=== PATIENT | female | born 1985 | race Caucasian/White ===

== ENCOUNTER 2020-09-16 15:28 | Outpatient (CLI) | payer OTHER, SELFPAY ==
--- NOTE | ~2020-09-16 | US_ITS ---
EXAMINATION: US abdomen limited EXAM DATE: 09/16/2020 15:58 INDICATION: Right upper quadrant pain. TECHNIQUE: Multiple grayscale and Doppler images of the abdomen right upper quadrant were obtained (b y a technologist who performed the scan) and subsequently reviewed. There is no prior study for neo jameson. FINDINGS: The pancreatic head and body are normal in appearance. The pancreatic tail is not visualized. The l iver has normal echogenicity and contour. There are no focal liver lesions identified. There is no evidence of intrahepatic biliary duct dilation. Portal venous flow was seen in the hepatopedal, nor mal direction and has normal Doppler waveform. No right-sided hydronephrosis. Common bile duct measures 2 mm, which is normal. The gallbladder wall is normal in thickness, with ex pected amount of distention. No sonographic evidence of pericholecystic fluid. There is no cholelit hiases. Technologist performing exam reports patient did not demonstrate sonographic Tapia's sign. Please note that this sign is less reliable in patients who have received pain medication. IMPRESSION: 1. Unremarkable abdominal ultrasound exam. Reviewed, dictated and finalized at location A. MENTATION COORDINATOR
== END 2020-09-16 15:29 | disposition home or self-care (01) ==
PROVIDERS: PCP Family Medicine; Visit Provider Family Medicine
DX: R10.11 Right upper quadrant pain (principal)
CPT/HCPCS: 76705

== ENCOUNTER 2020-09-17 08:47 | Emergency (ER) | payer OTHER, SELFPAY ==
--- NOTE | ~2020-09-17 | CT_ITS ---
EXAMINATION: CT abdomen pelvis w con INDICATION: Abdominal pain TECHNIQUE: Computed tomographic images of the abdomen and pelvis were obtained after the administrati on of 100 cc of Omnipaque 350 intravenous contrast. The dose-length product (DLP) was 248.66 mGy-cm. Automated exposure control and iterative reconstruction technique were employed. COMPARISON: None available FINDINGS: Minimal dependent atelectasis is present in the lung bases. The heart size is normal. There is a 13 mm cyst in the left hepatic lobe. The liver is otherwise unremarkable. The spleen, pancreas, gallbladder, and adrenal glands are normal. The kidneys are unremarkable. No pathologically enlarged abdominal or pelvic lymph nodes are identified. There is no free intraperitoneal gas or evidence of bowel obstruction. The appendix is normal. An IUD is present uterus. IMPRESSION: 1. No CT correlate for the patient's symptoms. Reviewed, dictated and finalized at location A. OR FUND ACCOUNTANT
[2020-09-17 08:51] VITALS: BP 119/73; PULSE 78; RESP 18; TEMP 36.3; O2SAT 100
[2020-09-17 09:15] LABS: Basophils Absolute Auto 0.1 K/mm3 (0.0-0.1); Eosinophils Absolute Auto 0.8 K/mm3 (0-0.3); Eosinophils Percent Auto 13.6 % (0-4.4); Hematocrit 42.4 % (37.0-47.0); Hemoglobin 14.6 g/dL (12.0-15.0); Lymphocytes Absolute Auto 1.51 K/mm3 (0.9-3.2); Lymphocytes Percent Auto 24.4 % (18.3-44.2); Mean Corpuscular HGB Conc 34.4 g/dl (32-36); Mean Corpuscular Hemoglobin 31.6 pg (26-34); Mean Corpuscular Volume 91.8 fl (80-100); Mean Platelet Volume 9.7 fl (7.4-10.4); Monocytes Absolute Auto 0.4 K/mm3 (0.1-0.6); Monocytes Percent Auto 6.1 % (2.6-8.5); Neutrophils Absolute Auto 3.4 K/mm3 (1.3-6.7); Neutrophils Percent Auto 54.9 % (45.5-73.1); Platelet Count Result 224 k/mm3 (150-375); Red Blood Count 4.62 M/mm3 (4.2-5.4); Red Cell Distribution Width 11.7 % (11.5-14.5); White Blood Count 6.2 K/mm3 (4.5-10.0)
[2020-09-17 09:19] LABS: Add Urine Microscopic? YES; Appearance Urine Clear (Clear); Bilirubin Urine Negative (Negative); Blood Urine 1+ (Negative); Color Urine Yellow (Yellow); Glucose Urine UA Negative (Negative); Ketones Urine Trace mg/dL (Negative); Leukocyte Esterase Ur Negative LEU/UL (Negative); Mucus Urine Rare /lpf; Nitrate Urine Negative (Negative); Protein Urine Negative (Negative); RBC Urine 0-2 /hpf (0-2); Specific Grav Ur 1.018 (1.001-1.035); Squamous Epithelial Cell Urine Many /hpf (Few); Urobilinogen Urine Negative mg/dL (<2.0); WBC Urine 0-3 /hpf
[2020-09-17 09:26] LABS: Alanine Aminotransferase 16 U/L (4-35); Albumin Level 4.1 g/dL (3.5-5.1); Alkaline Phosphatase 101 U/L (38-126); Anion Gap 7 mmol/L (8-16); Aspartate Amino Transferase 25 U/L (14-36); Bilirubin,Total 0.3 mg/dL (0.2-1.3); Blood Urea Nitrogen 12 mg/dL (7-17); Calcium 9.1 mg/dL (8.4-10.2); Carbon Dioxide 22 mmol/L (22-30); Chloride 109 mmol/L (98-107); Estimated CRCL calculation 89 ml/min; Estimated Glomerular Filt Rate > 60; Glucose 95 mg/dL (65-105); Lipase 102 U/L (23-300); Sodium 138 mmol/L (137-145)
--- NOTE | 2020-09-17 09:45 | ED.ABDPAIN ---
HPI - Abdominal Pain General Chief Complaint: Abdominal Pain Stated Complaint: gallbladder pain Time Seen by Provider: 09/17/20 08:50 Source: patient Mode of arrival: ambulatory Limitations: no limitations History of Present Illness HPI narrative: A 35-year-old female comes into the emergency department with complaints of abdominal pain going on for the last couple of days. She also notes a lot of diarrhea associated with this. Patient states that the pain feels like a large abdominal cramp. She notes this does feel different than menstrual cramps. Patient states that she has a Mirena, her periods have been very erratic and she does sometimes spot. She noted some spotting last week. Patient does endorse nausea without vomiting. She denies any fevers or chills. Related Data Allergies Allergy/AdvReac Type Severity Reaction Status Date / Time Penicillins Allergy Mild HIVES Verified 09/17/20 08:58 poison martin extract Allergy Mild RASH Verified 09/17/20 08:58 divalproex sodium Allergy Unknown Edema Verified 09/17/20 08:58 penicillin V Allergy Unknown Skin Verified 09/17/20 08:58 Reaction prochlorperazine Allergy Unknown twitching, Verified 09/17/20 08:58 restlessness Review of Systems Review of Systems: Narrative: CONSTITUTIONAL: Denies fever, chills, or sweats. EYES: Denies visual changes, redness, or discharge. ENT: Denies rhinorrhea, congestion, sore throat, or otalgia. CARDIOVASCULAR: Denies chest pain, palpitations, or edema. RESPIRATORY: Denies cough or dyspnea. GASTROINTESTINAL: Endorses diarrhea and abdominal cramping. GENITOURINARY: Denies dysuria or hematuria. SKIN: Denies rash or itching. MUSCULOSKELETAL: Denies back pain, joint pain, or myalgia. NEUROLOGIC: Denies headache, numbness, dizziness, or weakness. PSYCHIATRIC: Denies anxiety or depression. [facility] Past Medical History Medical History delivery delivered Chronic GERD Major depression Surgical History Surgical History Hx of LASIK Family History Family History Other Depression Social History Social History Smoking status: Current every day smoker Second hand tobacco smoke exposure: Yes Alcohol intake: current Gender identity (if verbalized by the patient): Female Exam Narrative: Exam Narrative: GENERAL: Well-appearing, well-nourished, and in no acute distress. HEAD: Normocephalic, atraumatic. EYES: PERRLA and EOMI. ENT: Nares clear, no rhinorrhea or epistaxis. Mucous membranes moist. NECK: Supple. No adenopathy or masses. No carotid bruits or JVD CHEST: Clear to auscultation. No respiratory distress. No wheezes rales or rhonchi HEART: Regular rate and rhythm. No murmur heard. Normal peripheral pulses. ABDOMEN: Soft, nondistended, normal active bowel sounds. Tenderness to palpation of the right lower quadrant. EXTREMITIES: Normal range of motion. No edema. SKIN: Warm, dry, no rash. NEURO: No focal deficits. Alert and oriented x3. PSYCH: Normal mood and affect. Course Reevaluation(s) Reevaluation #1: Patient lying comfortably in the bed at this time. Reevaluated her and explained the benign work-up. Patient reassured and will be discharged to follow-up with her primary care physician. Time: 11:11 Vital Signs Vital signs: Vital Signs Temperature 36.3 C L 09/17/20 08:51 Pulse Rate 78 09/17/20 08:51 Respiratory Rate 18 09/17/20 08:51 Blood Pressure 119/73 09/17/20 08:51 Pulse Oximetry 100 09/17/20 08:51 Temperature 36.3 C L 09/17/20 08:51 Pulse Rate 78 09/17/20 08:51 Respiratory Rate 18 09/17/20 08:51 Blood Pressure 119/73 09/17/20 08:51 Pulse Oximetry 100 09/17/20 08:51 MDM - Abdominal Pain MDM Narrative Medical decision making narrative: In brief this 35-year
[2020-09-17] MEDS: KETOROLAC 15 MG/ML VIAL (*BKC) IV PUSH (10:11)
[2020-09-17] MEDS: DICYCLOMINE HCL INJ 20 MG/2 ML VIAL IM (10:11)
== END 2020-09-17 12:16 | disposition home or self-care (01) ==
PROVIDERS: Emergency Provider Emergency Medicine; PCP Family Medicine
DX: R19.7 Diarrhea, unspecified (principal); R10.9 Unspecified abdominal pain; K21.9 Gastro-esophageal reflux disease without esophagitis; F32.9 Major depressive disorder, single episode, unspecified
CPT/HCPCS: 36415; 74177; 80053; 81001; 81025; 83690; 85025; 96372; 96374; 99284; J0500; J1885; Q9967

== ENCOUNTER 2025-06-02 10:14 | Outpatient (CLI) | payer OTHER, SELFPAY ==
--- NOTE | ~2025-06-02 | MMUS_ITS ---
EXAMINATION: MM diagnostic garry BI w connor, US breast LT limited INDICATION: 40-year old female; Evaluation of left breast palpable lump/thickness for 2 weeks. COMPARISON: Baseline TECHNIQUE: Digital breast tomosynthesis True lateral, MLO, CC views of both breasts and spot compression CC and MLO views of the LEFT breast were obtained with computer-aided detection to assist in interpretation of the study. A radiopaque skin marker was placed over the area of left breast palpable lump. FINDINGS: The breasts are heterogeneously dense, which may obscure small masses. The palpable lump of concern in the superior lateral in the middle depth left breast persists as a bilobed mass with partially obscured margins. Ultrasound was performed for further evaluation. No other mass, architectural distortion or suspicious microcalcifications identified in either breast. LEFT BREAST ULTRASOUND FINDINGS: Targeted evaluation of the area of concern was completed. There is a 2.9 x 1.5 x 1.3 cm circumscribed bilobed hypoechoic mass with low level internal echoes at 2:00, 4 cm FN in the LEFT breast that correlates to the area of Palpable area identified by the patient. This finding is compatible with a cyst. Additional cyst that measure 1.4 x 1.2 x 0.7 cm is seen at 2:00 near the nipple which also correlates to the area of palpable lump. IMPRESSION: Benign LEFT breast cysts correlates to palpable finding. No further investigation necessary. RECOMMENDATION: Annual screening bilateral mammography in 12 months. Evaluation of patient's palpable lump should be based on clinical impression. BI-RADS 2, BENIGN Reviewed, dictated and finalized at location B. LANCE ARTIST IMPRESSION: Benign LEFT breast cysts correlates to palpable finding. No further investigati on necessary. RECOMMENDATION: Annual screening bilateral mammography in 12 months. Evaluation of patient's palpable lump should be based on clinical impression. BI-RADS 2, BENIGN
== END 2025-06-02 10:15 | disposition home or self-care (01) ==
LOC: CHSIMG 10:15
PROVIDERS: PCP Family Medicine; Visit Provider Student in an Organized Health Care Education/Training Program
DX: N63.25 Unspecified lump in the left breast, overlapping quadrants (principal)
CPT/HCPCS: 76642; 77062; 77066; G0279